=== PATIENT | female | born 1945 | race Caucasian/White ===

== ENCOUNTER 2016-05-20 09:31 | Emergency (ER) | payer MEDICARE, BC ==
--- NOTE | 2016-05-20 11:06 | EDM.PDOC ---
ED HPI GENERAL MEDICAL PROBLEM - General Chief Complaint: General Stated Complaint: HIGH BP & TIGHTNESS IN CHEST Time Seen by Provider: 05/20/16 10:53 Source of Information: Reports: Patient, RN notes reviewed History Limitations: Reports: No limitations - History of Present Illness INITIAL COMMENTS - FREE TEXT/NARRATIVE: 71-year-old female presents emergency department for a complaint of elevated blood pressure she has a known history of hypertension also history of anxiety she states she did take her blood pressure yesterday found to be over 200 she became very nervous and felt tightness in her chest ongoing headache felt shortness of breath recheck her blood pressure again this morning, was high reported to the emergency room for further evaluation - Related Data Allergies Allergy/AdvReac Type Severity Reaction Status Date / Time cephalexin monohydrate Allergy Rash Verified 05/20/16 10:13 [From Keflex] codeine [From Robitussin A-C] Allergy Other Verified 05/20/16 10:13 guaifenesin Allergy Other Verified 05/20/16 10:13 [From Robitussin A-C] niacin Allergy Rash Verified 05/20/16 10:13 rosuvastatin calcium AdvReac Leg Cramps Verified 05/20/16 10:13 [From Crestor] simvastatin [From Zocor] AdvReac Leg Cramps Verified 05/20/16 10:13 Home Meds: Home Meds Calcium Carbonate/Vitamin D3 [Calcium 600 + Vit D Tablet] 1 each PO DAILY [History] Metoprolol Tartrate [Lopressor] 25 mg PO BID 05/04/13 [History] Multivitamin [Multi-Vitamin Daily] 1 each PO DAILY 05/04/13 [History] cycloSPORINE [Restasis] 1 drop EYEBOTH BID 05/04/13 [History] Fish Oil/DHA/EPA [Fish Oil 1,200 MG] 2 tab PO DAILY 10/04/14 [History] Omeprazole 40 mg PO DAILY 07/18/15 [History] Alum Hydrox/Mag Hydrox/Simeth [Mag-Al Plus] 15 ml PO Q4H PRN 03/19/16 [History] Past Medical History HEENT History: Reports: Cataract Cardiovascular History: Reports: High cholesterol, Hypertension Respiratory History: Reports: Asthma Gastrointestinal History: Reports: Chronic diarrhea, Colon polyp, GERD, Hemorrhoids, Irritable bowel syndrome, Other (see below) Other Gastrointestinal History: "yellow jaundice at age 15yo" Genitourinary History: Reports: Pyelonephritis 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: Dysfunctional uterine bleeding, Fibroids, Musculoskeletal History: Reports: Arthritis, Back pain, chronic, Osteoporosis Neurological History: Reports: Headaches, chronic, Other (see below) Other Neuro History: febrile seizure as child Psychiatric History: Reports: Anxiety Endocrine/Metabolic History: Reports: Osteoporosis Hematologic History: Reports: Other (see below) Other Hematologic History: vitamin D deficiency Immunologic History: Reports: Other (see below) Other Immunologic History: cytomegalovirus Dermatologic History: Reports: Other (see below) Other Dermatologic History: rash on back /16 - Infectious Disease History Infectious Disease History: Reports: Chicken pox, Other (see below) Other Infectious Disease History: yellow jaundice at age 15 - Past Surgical History HEENT Surgical History: Reports: Adenoidectomy, Tonsillectomy, Other (see below) Other HEENT Surgeries/Procedures: right ear surgery (stapectomy) GI Surgical History: Reports: Cholecystectomy, Colonoscopy, EGD, Jakub fundoplication Female Surgical History: Reports: Hysterectomy Oncologic Surgical History: Reports: None Dermatological Surgical History: Reports: Skin biopsy Social & Family History - Family History Cardiac: Reports: [place] GI: Reports: Cirrhosis Neurological: Reports: Alzheimers disease Endocrine/Metabolic: Reports: Diabetes, type II Oncologic: Reports: Colon, Lung - Tobacco Use Smoking Status *Q: Never Smoker Second Hand Smoke Exposure: No - Caffeine Use Caffeine Use: Reports: Coffee Other Caffeine Use: 8 to 10 cups per day - Alcohol Use Days Per Week of Alcohol Use: 2 Number of Drinks Per Day: 2 Total Drinks Per Week: 4 - Recreational Drug Use Recreational Drug Use: No ED ROS GENERAL - Review of Systems Review Of Systems: See Below Constitutional: Reports: no symptoms HEENT: Reports: No symptoms Respiratory: Reports: shortness of breath Cardiovascular: Reports: Chest pain, Lightheadedness GI/Abdominal: Reports: No symptoms : Reports: no symptoms Musculoskeletal: Reports: no symptoms Skin: Reports: no symptoms Neurological: Reports: headache ED EXAM, GENERAL - Physical Exam Exam: See Below Free Text/Narrative:: General: Anxious female, not in any distress, alert and oriented x3 HEENT: head is atraumatic normocephalic, eyes pupils equal round reactive to light and accommodation sclera clear no conjunctivitis appreciated. Ears tympanic membranes clear and weems landmarks and light reflex are present bilaterally canals are clear. Nose no septal deviation, nares are clear, no blood present. Mouth mucosa is moist and pink no erythema or exudate noted in soft palate, tongue is midline uvula is midline, dentition is intact. Neck: Supple no thyromegaly no tracheal deviation. Nodes: Cervical nodes subclavicular nodes nontender no palpable lymphadenopathy noted. Lungs: clear to auscultation bilaterally with symmetrical respirations, no adventitious noise appreciated. CV: Regular rate and rhythm S1 and S2 appreciated no murmurs rubs or gallops noted. Abdomen: Soft, nontender, no palpable masses or organomegaly appreciated, no distention no guarding bowel sounds are present, . Neuro: Cranial nerves II through XII grossly intact Skin: Warm and dry, intact Extremities: No lower extremity edema appreciated, . Course - Vital Signs Last Recorded V/S: Last Vital Signs Temp 98.4 F 05/20/16 10:25 Pulse 56 L 05/20/16 10:25 Resp 20 05/20/16 10:25 BP 157/83 H 05/20/16 10:25 Pulse Ox 96 05/20/16 10:25 - Orders/Labs/Meds Orders: Active Orders 24 hr Category Date Time Status Cardiac Monitoring [RC] .As Directed Care 05/20/16 11:03 Active EKG Documentation Completion [RC] ASDIRECTED Care 05/20/16 11:03 Active EKG 12 Lead [EK] Stat Ther 05/20/16 11:03 Ordered Labs: Laboratory Tests 05/20/16 05/20/16 Range/Units 11:03 11:03 WBC 3.9 L (4.5-11.0) K/uL RBC 4.14 (3.30-5.50) M/uL Hgb 12.6 (12.0-15.0) g/dL Hct 38.1 (36.0-48.0) % MCV 92 (80-98) fL MCH 30 (27-31) pg MCHC 33 (32-36) % Plt Count 224 (150-400) K/uL Neut % (Auto) 47 (36-66) % Lymph % (Auto) 41 (24-44) % [place] % (Auto) 10 H (2-6) % Eos % (Auto) 1 L (2-4) % Baso % (Auto) 0 (0-1) % Sodium 142 (140-148) mmol/L Potassium 4.0 (3.6-5.2) mmol/L Chloride 104 (100-108) mmol/L Carbon Dioxide 30 (21-32) mmol/L Anion Gap 7.9 (5.0-14.0) mmol/L BUN 13 (7-18) mg/dL Creatinine 0.8 (0.6-1.0) mg/dL Est Cr Clr Drug Dosing 54.13 mL/min Estimated GFR (MDRD) > 60 (>60) Glucose 80 (74-106) mg/dL Calcium 8.9 (8.5-10.1) mg/dL Troponin I 0.023 (0.000-0.056) ng/mL Departure - Departure Time of Disposition: 12:05 Disposition: Home, Self-Care 01 Condition: good Clinical Impression: Hypertension Qualifiers: Hypertension type: essential hypertension Qualified Code(s): I10 - Essential ( primary) hypertension Forms: ED Department Discharge Additional Instructions: start lisinopril 10 mg one tablet once a day in combination with your metoprolol followup with primary care 5-7 days for reevaluation, call or return to the ED with worsening of symptoms - My Orders Last 24 Hours: My Active Orders 05/20/16 11:03 Cardiac Monitoring [RC] .As Directed EKG Documentation Completion [RC] ASDIRECTED EKG 12 Lead [EK] Stat - Assessment/Plan Last 24 Hours: My Active Orders 05/20/16 11:03 Cardiac Monitoring [RC] .As Directed EKG Documentation Completion [RC] ASDIRECTED EKG 12 Lead [EK] Stat Plan: Assessment Acuity = acute Site and laterality = hypertensive urgency complicated patient with known hypertension Etiology = unclear etiology Manifestations = chest pain, shortness of breath, headache Location of injury = home Lab values = CBC, CMP, chest x-ray, EKG all within normal limits Plan I did discuss with her options recommend starting lisinopril low dose 10 mg once a day follow up with primary care in 5-7 days for reevaluation risks benefits side effects of the medications were discussed Patient was in agreement with the plan all questions were answered, they were instructed to return to the emergency department or call for worsening symptoms. This note was dictated using [employer] voice recognition software please call with any questions.
--- NOTE | 2016-05-20 11:49 | CR ---
Chest 2V HISTORY: Chest pain. COMPARISON: None FINDINGS: Cardiac size and pulmonary vessels normal. There are no infiltrates or effusions. No pneum othorax. The osseous structures appear normal. IMPRESSION: No acute pulmonary disease.
[2016-05-20 12:47] VITALS: BP 175/89
== END 2016-05-20 12:20 | disposition home or self-care (01) ==
LOC: JP.ED 09:31
DX: I10 Essential (primary) hypertension (principal); E78.00 Pure hypercholesterolemia, unspecified; J45.909 Unspecified asthma, uncomplicated; Z88.8 Allergy status to other drugs, medicaments and biological substances; Z79.899 Other long term (current) drug therapy; Z90.710 Acquired absence of both cervix and uterus
CPT/HCPCS: 36415; 71020; 71020-26; 80048; 84484; 85025; 93005; 93010; 99283; 99284-25

== ENCOUNTER 2020-02-25 21:12 | Emergency (ER) | payer MEDICARE, BC ==
[2020-02-25] MEDS ORDERED: LORazepam 0.5 MG Tab PO ONE (22:08)
--- NOTE | 2020-02-25 22:08 | EDM.PDOC ---
ED HPI GENERAL MEDICAL PROBLEM - General Chief Complaint: General Stated Complaint: MED[facility] Time Seen by Provider: 02/25/20 21:56 Source of Information: Reports: Patient, EMS, RN Notes Reviewed History Limitations: Reports: No Limitations - History of Present Illness INITIAL COMMENTS - FREE TEXT/NARRATIVE: 75-year-old female presents emergency department today via EMS services for elevated blood pressure, she states she has a long history with blood pressure problems today her blood pressure was well over 200 the other symptoms she is noticed is that she has had difficulty walking has become more unsteady on her feet over the last 2 weeks. No nausea vomiting no shortness of breath no chest pain she does have a dull headache, recent medication change amlodipine reduction from 10 mg to 5 mg 3 months ago Headache Pain Score (Numeric/FACES): 3 - Related Data Allergies Allergy/AdvReac Type Severity Reaction Status Date / Time cephalexin monohydrate Allergy Rash Verified 02/25/20 21:17 [From Keflex] codeine [From Robitussin A-C] Allergy Other Verified 02/25/20 21:17 guaifenesin Allergy Other Verified 02/25/20 21:17 [From Robitussin A-C] niacin Allergy Rash Verified 02/25/20 21:17 venlafaxine [From Effexor] Allergy Other Verified 02/25/20 21:17 rosuvastatin calcium AdvReac Leg Cramps Verified 02/25/20 21:17 [From Crestor] simvastatin [From Zocor] AdvReac Leg Cramps Verified 02/25/20 21:17 Home Meds: Home Meds Metoprolol Tartrate [Lopressor] 25 mg PO BID 05/04/13 [History] Multivitamin [Multi-Vitamin Daily] 1 each PO DAILY 05/04/13 [History] cycloSPORINE [Restasis] 1 drop EYEBOTH BID 05/04/13 [History] Alum Hydrox/Mag Hydrox/Simeth [Mag-Al Plus] 15 ml PO Q4H PRN 03/19/16 [History] Acetaminophen [Mapap] 500 mg PO Q6H PRN 01/14/18 [History] amLODIPine [Norvasc] 2.5 mg PO DAILY 02/25/20 [History] Past Medical History HEENT History: Reports: Impaired Vision Cardiovascular History: Reports: High Cholesterol, Hypertension Respiratory History: Reports: Asthma Gastrointestinal History: Reports: Chronic Diarrhea, Colon Polyp, GERD, Hemorrhoids, Irritable Bowel Syndrome, Other (See Below) Other Gastrointestinal History: "yellow jaundice at age 15yo" Genitourinary History: Reports: Pyelonephritis 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: Dysfunctional Uterine Bleeding, Fibroids, Musculoskeletal History: Reports: Arthritis, Back Pain, Chronic, Osteoporosis Neurological History: Reports: Headaches, Chronic Other Neuro History: febrile seizure as child Psychiatric History: Reports: Anxiety Endocrine/Metabolic History: Reports: Osteoporosis Hematologic History: Reports: Other (See Below) Other Hematologic History: vitamin D deficiency Immunologic History: Reports: Other (See Below) Other Immunologic History: cytomegalovirus Dermatologic History: Reports: Other (See Below) Other Dermatologic History: rash on back /16 - Infectious Disease History Infectious Disease History: Reports: Chicken Pox, Other (See Below) Other Infectious Disease History: yellow jaundice at age 15 - Past Surgical History Head Surgeries/Procedures: Reports: None HEENT Surgical History: Reports: Adenoidectomy, Tonsillectomy, Other (See Below) Other HEENT Surgeries/Procedures: right ear surgery (stapectomy) Cardiovascular Surgical History: Reports: None Respiratory Surgical History: Reports: None GI Surgical History: Reports: Cholecystectomy, Colonoscopy, EGD, Jakub Fundoplication Female Surgical History: Reports: Hysterectomy Endocrine Surgical History: Reports: None Neurological Surgical History: Reports: None Musculoskeletal Surgical History: Reports: None Oncologic Surgical History: Reports: None Dermatological Surgical History: Reports: Skin Biopsy Social & Family History - Family History Family Medical History: No Pertinent Family History Cardiac: Reports: [place] GI: Reports: Cirrhosis Neurological: Reports: Alzheimers Disease Endocrine/Metabolic: Reports: Diabetes, type II Oncologic: Reports: Colon, Lung - Tobacco Use Tobacco Use Status *Q: Never Tobacco User Second Hand Smoke Exposure: No - Caffeine Use Caffeine Use: Reports: Coffee, Soda Other Caffeine Use: 8 to 10 cups per day - Alcohol Use Days Per Week of Alcohol Use: 1 Number of Drinks Per Day: 2 Total Drinks Per Week: 2 - Recreational Drug Use Recreational Drug Use: No ED ROS GENERAL - Review of Systems Review Of Systems: See Below Constitutional: Reports: No Symptoms HEENT: Reports: Eye Discharge Respiratory: Reports: No Symptoms Cardiovascular: Reports: Blood Pressure Problem. Denies: Chest Pain GI/Abdominal: Reports: No Symptoms Neurological: Reports: Headache, Difficulty Walking ED EXAM, GENERAL - Physical Exam Exam: See Below Exam Limited By: No Limitations General Appearance: Alert, WD/WN, No Apparent Distress Respiratory/Chest: No Respiratory Distress, Lungs Clear, Normal Breath Sounds, No Accessory Muscle Use, Chest Non-Tender Cardiovascular: Regular Rate, Rhythm, No Murmur GI/Abdominal: Soft, Non-Tender Course - Vital Signs Last Recorded V/S: Last Vital Signs Temp 96.9 F 02/25/20 21:43 Pulse 53 L 02/25/20 22:56 Resp 16 02/25/20 22:56 BP 136/73 02/25/20 22:56 Pulse Ox 94 L 02/25/20 22:56 - Orders/Labs/Meds Orders: Active Orders 24 hr Category Date Time Status Cardiac Monitoring [RC] .As Directed Care 02/25/20 22:04 Active Labs: Laboratory Tests 02/25/20 02/25/20 Range/Units 22:18 22:18 WBC 4.8 (4.5-11.0) K/uL RBC 4.13 (3.30-5.50) M/uL Hgb 12.5 (12.0-15.0) g/dL Hct 38.1 (36.0-48.0) % MCV 92 (80-98) fL MCH 30 (27-31) pg MCHC 33 (32-36) % Plt Count 227 (150-400) K/uL Neut % (Auto) 46 (36-66) % Lymph % (Auto) 42 (24-44) % [place] % (Auto) 11 H (2-6) % Eos % (Auto) 2 (2-4) % Baso % (Auto) 0 (0-1) % Sodium 139 L (140-148) mmol/L Potassium 3.8 (3.6-5.2) mmol/L Chloride 103 (100-108) mmol/L Carbon Dioxide 28 (21-32) mmol/L Anion Gap 11.8 (5.0-14.0) mmol/L BUN 10 (7-18) mg/dL Creatinine 0.9 (0.6-1.0) mg/dL Est Cr Clr Drug Dosing 45.36 mL/min Estimated GFR (MDRD) > 60 (>60) Glucose 97 (74-106) mg/dL Calcium 9.0 (8.5-10.1) mg/dL Troponin I 0.035 (0.000-0.056) ng/mL Meds: Medications Discontinued Medications Generic Name Dose Route Start Last Admin Trade Name Hermes PRN Reason Stop Dose Admin Lorazepam 0.5 mg 02/25/20 22:08 02/25/20 22:16 Ativan PO 02/25/20 22:09 0.5 mg ONETIME ONE Administration Departure - Departure Time of Disposition: 23:49 Disposition: Home, Self-Care 01 Condition: Fair Clinical Impression: Hypertensive urgency - Discharge Information Instructions: Hypertension, Adult, [id number] Referrals: PCP,None [Primary Care Provider] - Forms: ED Department Discharge Additional Instructions: Try the Ativan I would use a half a tablet as needed up to 3 times a day, please followup with your primary care provider in 5-7 days if not better, please call return to the emergency department with worsening of symptoms. Sepsis Event Note (ED) - Evaluation Sepsis Screening Result: No Definite Risk - Focused Exam Vital Signs: Vital Signs Temp Pulse Resp BP Pulse Ox 02/25/20 22:56 53 L 16 136/73 94 L 02/25/20 21:43 96.9 F 58 L 12 178/85 H 96 02/25/20 21:15 96.9 F 58 L 12 178/85 H 96 - My Orders Last 24 Hours: My Active Orders 02/25/20 22:04 Cardiac Monitoring [RC] .As Directed - Assessment/Plan Last 24 Hours: My Active Orders 02/25/20 22:04 Cardiac Monitoring [RC] .As Directed Plan: Assessment Acuity = acute Site and laterality = hypertensive urgency Etiology = unknown possibly an anxiety component Manifestations = none Location of injury = Home Lab values = CBC, CMP, CT scan of the head show no acute process does show known pressure hydrocephalus chronic condition Plan Blood pressure did come down with Ativan prescription written for 1 mg p.o. 3 times daily as needed recommend she use a half a tablet keep follow-up appointment with primary care 5 to 7 days for reevaluation This note was dictated using [employer] voice recognition software please call with any questions on syntax or grammar.
--- NOTE | 2020-02-25 22:59 | CRLCT ---
INDICATION: Headache, difficulty walking TECHNIQUE: CT Head without i.v. contrast. COMPARISON: None FINDINGS: CSF space: The lateral, third, and fourth ventricles are enlarged to a degree that is disproportionate to the sulcal enlargement. Brain: No evidence of mass, acute infarction or hemorrhage is seen. No mass-effect or midline shift is seen. Mild diffuse cortical atrophy is noted. The brain parenchyma is otherwise normal in appearance with preservation of the weems-white matter junction. Calvarium: The visualized paranasal sinuses are well aerated. The mastoid air cells are clear. The visualized orbits are grossly unremarkable. The calvarium is unremarkable in appearance with no fractures identified. IMPRESSIONS: 1. No evidence of acute infarction, intracranial hemorrhage, or mass-effect seen. 2. The lateral, third, and fourth ventricles are enlarged to a degree that is disproportionate to the sulcal enlargement. Clinical correlation recommended to exclude Normal Pressure Hydrocephalus. Dictated by Kumar Phillips MD @ 02/25/2020 10:57:23 PM Please note that all CT scans at this facility use dose modulation, iterative reconstruction, and/or weight-based dosing when appropriate to reduce radiation dose to as low as reasonably achievable. Dictated by: Kumar Phillips MD @ 02/25/2020 22:57:33 (Electronically Signed)
[2020-02-25 23:01] VITALS: BP 136/73; PULSE 53
== END 2020-02-26 00:23 | disposition home or self-care (01) ==
LOC: JP.ED 21:12
DX: I16.0 Hypertensive urgency (principal); I10 Essential (primary) hypertension; J45.909 Unspecified asthma, uncomplicated; Z88.1 Allergy status to other antibiotic agents; Z88.5 Allergy status to narcotic agent; Z88.8 Allergy status to other drugs, medicaments and biological substances; Z79.899 Other long term (current) drug therapy; Z90.49 Acquired absence of other specified parts of digestive tract; Z90.710 Acquired absence of both cervix and uterus
CPT/HCPCS: 36415; 70450; 80048; 84484; 85025; 99283; 99284-25; A9270-GY

== ENCOUNTER 2020-11-16 07:46 | Day surgery (SDC) | payer MEDICARE, BC ==
[2020-11-16] MEDS ORDERED: Dextrose 5%-Lactated Ringers 1,000 ML IV SCH (08:45)
[2020-11-16] MEDS ORDERED: Midazolam 1 MG/ML 2 ML SDV ONE (10:07)
[2020-11-16] MEDS ORDERED: Propofol 200 MG/20 ML SDV ONE (10:07)
[2020-11-16] MEDS ORDERED: fentaNYL 100 MCG/2 ML SDV ONE (10:07)
[2020-11-16] MEDS ORDERED: Glycopyrrolate 0.2 MG/ML 5 ML MDV ONE (11:15)
[2020-11-16 14:40] VITALS: BP 118/92; PULSE 73
--- NOTE | 2020-11-26 13:10 | OR ---
DATE OF PROCEDURE: 11/16/2020 SURGEON: Bassam Spivey MD PREOPERATIVE DIAGNOSIS: Indications for screening colonoscopy. POSTOPERATIVE DIAGNOSIS: Normal colonoscopic examination. OPERATIVE PROCEDURE: Colonoscopy. ANESTHESIA: IV sedation. INDICATION FOR PROCEDURE: A 75-year-old female presenting for screening colonoscopy. She does have a significant family history with 2 sisters having colon carcinoma. Plan is to proceed with a colonoscopy with biopsies and/or polypectomy as indicated. Potential risks including bleeding and perforation were discussed, and the patient wishes to proceed. DETAILS OF PROCEDURE: The patient was taken to the operating room and placed in a left lateral decubitus position. IV sedation was administered after which the initial digital rectal exam was performed and was unremarkable. The colonoscope was then passed into the rectum with retroflexion revealing uncomplicated hemorrhoidal columns. The scope was eventually passed to the level of the cecum. The prep was quite good. Only a small amount of liquid stool was present. To that level, there were no areas of diverticular disease. No areas of colitis, and no polyps or other signs of neoplasia. The scope was then withdrawn, the above findings reconfirmed, and the procedure was then concluded. There were no evident complications. With the patient's significant family history, a repeat colonoscopy should be entertained in 5 years. Bassam Spivey MD /[id number]
== END 2020-11-16 12:25 | disposition home or self-care (01) ==
LOC: JP.SDS 07:46
PROVIDERS: ATTEND Surgery
DX: Z12.11 Encounter for screening for malignant neoplasm of colon (principal); K64.9 Unspecified hemorrhoids; G47.33 Obstructive sleep apnea (adult) (pediatric); Z80.0 Family history of malignant neoplasm of digestive organs
CPT/HCPCS: G0105; J2250; J2704; J3010; J3490; J7121

== ENCOUNTER 2021-10-17 08:30 | Day surgery (SDC) | payer BC, MEDICARE ==
[2021-10-17] MEDS ORDERED: Dextrose 5%-Lactated Ringers 1,000 ML IV SCH (09:15)
[2021-10-17] MEDS ORDERED: Propofol 200 MG/20 ML SDV ONE (09:27)
[2021-10-17] MEDS ORDERED: fentaNYL 100 MCG/2 ML SDV ONE (09:27)
[2021-10-17 11:41] VITALS: BP 135/61; PULSE 50
== END 2021-10-17 11:41 | disposition home or self-care (01) ==
LOC: JP.SDS 08:30
PROVIDERS: ATTEND Surgery
DX: K20.90 Esophagitis, unspecified without bleeding (principal); K29.70 Gastritis, unspecified, without bleeding; K44.9 Diaphragmatic hernia without obstruction or gangrene; I10 Essential (primary) hypertension; E78.5 Hyperlipidemia, unspecified; G47.33 Obstructive sleep apnea (adult) (pediatric); K21.9 Gastro-esophageal reflux disease without esophagitis; Z88.1 Allergy status to other antibiotic agents; Z88.8 Allergy status to other drugs, medicaments and biological substances; Z88.3 Allergy status to other anti-infective agents; Z88.5 Allergy status to narcotic agent; Z79.899 Other long term (current) drug therapy; Z79.810 Long term (current) use of selective estrogen receptor modulators (SERMs)
CPT/HCPCS: 43239; 87081; J2704; J3010; J7121; 88305

== ENCOUNTER 2021-12-18 09:36 | Emergency (ER) | payer MEDICARE ==
[2021-12-18] MEDS ORDERED: Aspirin 81 MG Tab.Chew PO ONE (10:55)
[2021-12-18] MEDS ORDERED: Ketorolac 30 MG/ML SDV IM ONE (10:55)
[2021-12-18 11:34] LABS: TROPONIN I HIGH SENSITIVITY 108.6 pg/mL (<=60.3)
[2021-12-18] MEDS ORDERED: Sodium Chloride 0.9% 10 ML Syringe FLUSH PRN (11:41)
[2021-12-18] MEDS ORDERED: Heparin Sodium 5,000 Units/ML Vial IVPUSH ONE (11:49)
[2021-12-18] MEDS ORDERED: Heparin Sodium/D5W 25,000 UNITS/500 ML BAG IV SCH (12:00)
[2021-12-18] MEDS: Nitroglycerin 0.4 MG Tab.SL SL PRN ×2 (12:27→12:40)
[2021-12-18 14:54] VITALS: BP 138/74; PULSE 98
== END 2021-12-18 15:17 ==
LOC: JP.ED 09:36
DX: R74.8 Abnormal levels of other serum enzymes (principal); R07.89 Other chest pain; I10 Essential (primary) hypertension; E78.00 Pure hypercholesterolemia, unspecified; F41.9 Anxiety disorder, unspecified; Z20.822 Contact with and (suspected) exposure to COVID-19; Z79.899 Other long term (current) drug therapy; Z88.1 Allergy status to other antibiotic agents; Z88.8 Allergy status to other drugs, medicaments and biological substances
CPT/HCPCS: 36415; 71045; 80048; 84484; 85025; 96365; 96366; 96372; 96376; 99285-25; A9270-GY; J1644; J1885; J3490; U0002

== ENCOUNTER 2022-02-24 21:41 | Emergency (ER) | payer MEDICARE ==
[2022-02-24 22:24] VITALS: BP 157/89; PULSE 62
[2022-02-24 22:44] LABS: ESTIMATED GFR 76 mL/min (>60)
[2022-02-24 22:59] LABS: TROPONIN I HIGH SENSITIVITY 211.5 pg/mL (<=60.3)
== END 2022-02-24 22:58 | disposition home or self-care (01) ==
LOC: JP.ED 21:41
DX: I15.0 Renovascular hypertension (principal); M19.90 Unspecified osteoarthritis, unspecified site; Z88.8 Allergy status to other drugs, medicaments and biological substances; Z88.1 Allergy status to other antibiotic agents; Z88.5 Allergy status to narcotic agent; Z79.899 Other long term (current) drug therapy
CPT/HCPCS: 36415; 80053; 84484; 85025; 93005; 99285

== ENCOUNTER 2022-11-20 07:14 | Day surgery (SDC) | payer MEDICARE ==
[~2022-11-20 07:14] MED LIST: Propofol 200 MG/20 ML SDV ONE; fentaNYL 100 MCG/2 ML SDV ONE
[2022-11-20] MEDS ORDERED: Dextrose 5%-Lactated Ringers 1,000 ML IV SCH (08:00)
[2022-11-20 10:55] VITALS: BP 136/60; PULSE 47
== END 2022-11-20 10:50 | disposition home or self-care (01) ==
LOC: JP.SDS 07:14
PROVIDERS: ATTEND Surgery
DX: R13.10 Dysphagia, unspecified (principal); K21.9 Gastro-esophageal reflux disease without esophagitis; K22.89 Other specified disease of esophagus; K44.9 Diaphragmatic hernia without obstruction or gangrene; I10 Essential (primary) hypertension; E78.5 Hyperlipidemia, unspecified; Z98.890 Other specified postprocedural states; Z88.1 Allergy status to other antibiotic agents; Z88.5 Allergy status to narcotic agent; Z88.8 Allergy status to other drugs, medicaments and biological substances
CPT/HCPCS: 43235; J2704; J3010; J7121

== ENCOUNTER 2023-01-02 02:38 | Emergency (ER) | payer MEDICARE ==
[2023-01-02 03:28] LABS: BASOPHILS PERCENT AUTO 0.3 % (0.1-1.3); EOSINOPHILS ABSOLUTE AUTO 0.09 K/uL (0.00-0.40); EOSINOPHILS PERCENT AUTO 2.4 % (0.0-5.4); HEMOGLOBIN 11.8 g/dL (11.2-15.5); LYMPHOCYTES ABSOLUTE AUTO 1.32 K/uL (0.8-3.3); LYMPHOCYTES PERCENT AUTO 35.3 % (11.4-47.7); MEAN CORPUSCULAR HEMOGLOBIN 30.9 pg (31.6-35.5); MEAN CORPUSCULAR HGB CONC 33.7 g/dL (31.6-35.5); MEAN CORPUSCULAR VOLUME 91.6 fL (81.4-99.0); MONOCYTES ABSOLUTE AUTO 0.47 K/uL (0.20-0.90); MONOCYTES PERCENT AUTO 12.6 % (3.3-12.6); NEUTROPHILS ABSOLUTE AUTO 1.85 K/uL (1.0-7.6); NEUTROPHILS PERCENT AUTO 49.4 % (40.0-78.1); PLATELET COUNT,PLT 197 K/uL (130-375); RED BLOOD CELL COUNT 3.82 M/uL (3.77-5.24); WHITE BLOOD CELL COUNT,WBC 3.7 K/uL (3.2-11.0)
[2023-01-02 03:29] VITALS: BP 165/96; PULSE 56
[2023-01-02 03:31] LABS: BASOPHILS ABSOLUTE AUTO 0.01 K/uL (0.00-0.10)
[2023-01-02 03:43] LABS: ANION GAP 9.8 mmol/L (5.0-14.0); CALCIUM 8.4 mg/dL (8.5-10.1); CREATININE 0.8 mg/dL (0.6-1.0); EST CRCL DRUG DOSING (CG) 47.32 mL/min; POTASSIUM,K 4.1 mmol/L (3.6-5.2)
== END 2023-01-02 04:14 | disposition home or self-care (01) ==
LOC: JP.ED 02:38
DX: I15.0 Renovascular hypertension (principal); J45.909 Unspecified asthma, uncomplicated; K21.9 Gastro-esophageal reflux disease without esophagitis; Z86.16 Personal history of COVID-19; Z88.1 Allergy status to other antibiotic agents; Z88.8 Allergy status to other drugs, medicaments and biological substances; Z88.5 Allergy status to narcotic agent; Z79.899 Other long term (current) drug therapy; Z98.890 Other specified postprocedural states
CPT/HCPCS: 36415; 80048; 85025; 99284

== ENCOUNTER 2024-01-21 10:37 | Emergency (ER) | payer MEDICARE ==
[2024-01-21 12:13] LABS: BASOPHILS PERCENT AUTO 0.3 % (0.1-1.3); EOSINOPHILS ABSOLUTE AUTO 0.07 K/uL (0.00-0.40); HEMATOCRIT 36.6 % (34.3-46.0); HEMOGLOBIN 12.5 g/dL (11.2-15.5); IMMATURE GRAN PERCENT AUTO 0.3 % (0.0-0.7); LYMPHOCYTES ABSOLUTE AUTO 1.34 K/uL (0.8-3.3); LYMPHOCYTES PERCENT AUTO 38.6 % (11.4-47.7); MEAN CORPUSCULAR HGB CONC 34.2 g/dL (31.6-35.5); MEAN CORPUSCULAR VOLUME 90.8 fL (81.4-99.0); MONOCYTES ABSOLUTE AUTO 0.33 K/uL (0.20-0.90); MONOCYTES PERCENT AUTO 9.5 % (3.3-12.6); NEUTROPHILS ABSOLUTE AUTO 1.71 K/uL (1.0-7.6); NEUTROPHILS PERCENT AUTO 49.3 % (40.0-78.1); PLATELET COUNT,PLT 198 K/uL (130-375); RED BLOOD CELL COUNT 4.03 M/uL (3.77-5.24); WHITE BLOOD CELL COUNT,WBC 3.5 K/uL (3.2-11.0)
[2024-01-21 12:14] LABS: BASOPHILS ABSOLUTE AUTO 0.01 K/uL (0.00-0.10); IMMATURE GRAN ABSOLUTE AUTO 0.01 K/uL (0.00-0.23)
[2024-01-21 12:27] LABS: APPEARANCE,URINE CLEAR (CLEAR); BILIRUBIN,URINE NEGATIVE (NEGATIVE); COLOR,URINE YELLOW (YELLOW); GLUCOSE,URINE NEGATIVE (NEGATIVE); KETONES,URINE NEGATIVE (NEGATIVE); LEUKOCYTE ESTERASE,URINE NEGATIVE (NEGATIVE); NITRITE,URINE NEGATIVE (NEGATIVE); OCCULT BLOOD,URINE NEGATIVE (NEGATIVE); PH,URINE 7.5 (5.0-8.0); PROTEIN,URINE NEGATIVE (NEGATIVE); UROBILINOGEN,URINE 0.2 EU/dL (0.2-1.0)
[2024-01-21 12:34] LABS: AMORPHOUS SEDIMENT,URINE RARE; BACTERIA,URINE NOT SEEN; EPITHELIAL CELLS,URINE NOT SEEN; MUCUS,URINE NOT SEEN; RBC,URINE NOT SEEN (0-5); WBC,URINE NOT SEEN (0-5)
[2024-01-21 12:35] LABS: A/G RATIO 1.2 (1.2-2.2); ALANINE AMINOTRANSFERASE,ALT 28 U/L (12-78); ALBUMIN 3.8 g/dL (3.4-5.0); ALKALINE PHOSPHATASE 114 U/L (46-116); ASPARTATE AMNIOTRANSFERASE,AST 23 U/L (15-37); BILIRUBIN TOTAL 0.6 mg/dL (0.2-1.0); BLOOD UREA NITROGEN,BUN 16 mg/dL (7-18); CALCIUM 9.4 mg/dL (8.5-10.1); CARBON DIOXIDE,CO2 29 mmol/L (21-32); CHLORIDE,CL 102 mmol/L (100-108); CREATININE 0.8 mg/dL (0.6-1.0); EST CRCL DRUG DOSING (CG) 48.72 mL/min; ESTIMATED GFR 76 mL/min (>60); GLUCOSE RANDOM 94 mg/dL (74-106); PROTEIN TOTAL,TP 6.9 g/dL (6.4-8.2); SODIUM,NA 138 mmol/L (140-148)
[2024-01-21 13:10] VITALS: BP 160/87; PULSE 59
== END 2024-01-21 14:04 | disposition home or self-care (01) ==
LOC: JP.ED 10:37
DX: I10 Essential (primary) hypertension (principal); J45.909 Unspecified asthma, uncomplicated; K21.9 Gastro-esophageal reflux disease without esophagitis; Z86.16 Personal history of COVID-19; Z90.49 Acquired absence of other specified parts of digestive tract; Z79.899 Other long term (current) drug therapy; Z88.1 Allergy status to other antibiotic agents; Z88.5 Allergy status to narcotic agent; Z88.8 Allergy status to other drugs, medicaments and biological substances; Z88.3 Allergy status to other anti-infective agents
CPT/HCPCS: 36415; 70450; 70450-26; 71045; 71045-26; 80053; 81001; 85025; 99284

== ENCOUNTER 2024-07-25 22:32 | Emergency (ER) | payer MEDICARE ==
[2024-07-25 23:20] LABS: BASOPHILS PERCENT AUTO 0.2 % (0.1-1.3); EOSINOPHILS PERCENT AUTO 2.2 % (0.0-5.4); HEMATOCRIT 34.3 % (34.3-46.0); HEMOGLOBIN 11.6 g/dL (11.2-15.5); IMMATURE GRAN PERCENT AUTO 0.2 % (0.0-0.7); LYMPHOCYTES ABSOLUTE AUTO 1.97 K/uL (0.8-3.3); MEAN CORPUSCULAR HEMOGLOBIN 31.3 pg (31.6-35.5); MEAN CORPUSCULAR HGB CONC 33.8 g/dL (31.6-35.5); MEAN CORPUSCULAR VOLUME 92.5 fL (81.4-99.0); MONOCYTES ABSOLUTE AUTO 0.44 K/uL (0.20-0.90); MONOCYTES PERCENT AUTO 9.8 % (3.3-12.6); NEUTROPHILS ABSOLUTE AUTO 1.95 K/uL (1.0-7.6); NEUTROPHILS PERCENT AUTO 43.6 % (40.0-78.1); PLATELET COUNT,PLT 206 K/uL (130-375); RED BLOOD CELL COUNT 3.71 M/uL (3.77-5.24); WHITE BLOOD CELL COUNT,WBC 4.5 K/uL (3.2-11.0)
[2024-07-25 23:22] LABS: BASOPHILS ABSOLUTE AUTO 0.01 K/uL (0.00-0.10); IMMATURE GRAN ABSOLUTE AUTO 0.01 K/uL (0.00-0.23)
[2024-07-25 23:37] LABS: CALCIUM 9.4 mg/dL (8.5-10.1); CREATININE 0.7 mg/dL (0.6-1.0); EST CRCL DRUG DOSING (CG) 52.39 mL/min; POTASSIUM,K 3.7 mmol/L (3.6-5.2)
[2024-07-25 23:39] LABS: ANION GAP 14.7 mmol/L (5.0-14.0)
[2024-07-25 23:55] VITALS: BP 153/70; PULSE 60
== END 2024-07-25 23:55 | disposition home or self-care (01) ==
LOC: JP.ED 22:32
DX: I10 Essential (primary) hypertension (principal); J45.909 Unspecified asthma, uncomplicated; M19.90 Unspecified osteoarthritis, unspecified site; K21.9 Gastro-esophageal reflux disease without esophagitis; Z88.1 Allergy status to other antibiotic agents; Z88.8 Allergy status to other drugs, medicaments and biological substances; Z88.5 Allergy status to narcotic agent; Z79.899 Other long term (current) drug therapy; Z86.16 Personal history of COVID-19; Z90.710 Acquired absence of both cervix and uterus; Z90.49 Acquired absence of other specified parts of digestive tract
CPT/HCPCS: 36415; 80048; 85025; 99283